=== PATIENT | male | born 1965 | race Caucasian/White ===

== ENCOUNTER 2020-11-06 10:14 | Outpatient (CLI) | payer OTHER ==
--- NOTE | 2020-11-06 10:38 | RAD ---
Frontal and lateral imaging of the thoracic spine: 11/06/2020 COMPARISON: None HISTORY: Upper back pain FINDINGS: There is multilevel mild thoracic spine disc space narrowing with minimal mid and lower tho racic spine anterior osteophyte from aeration. No anterolisthesis or retrolisthesis. No evidence for fracture. Thoracic pedicles appear intact on frontal imaging. IMPRESSION: Mild degenerative change. If there are radicular symptoms, MRI suggested.
--- NOTE | 2020-11-06 10:39 | RAD ---
Cervical spine 5 views HISTORY: Neck pain. FINDINGS: Vertebral body heights and alignment are maintained. Cervicothoracic junction is intact. Mild osteophytosis. No acute fracture, dislocation, or aggressive osseous erosions. On the oblique views, neural foramina are free of significant osseous encroachment. IMPRESSION : Very mild osseous degenerative changes. No acute abnormalities are demonstrated.
== END 2020-11-06 10:15 | disposition home or self-care (01) ==
LOC: MADRAD 10:14
PROVIDERS: ATTEND Family Medicine
DX: M54.2 Cervicalgia (principal); M54.6 Pain in thoracic spine; M47.812 Spondylosis without myelopathy or radiculopathy, cervical region; M47.814 Spondylosis without myelopathy or radiculopathy, thoracic region
CPT/HCPCS: 72050; 72070

== ENCOUNTER 2021-05-13 19:34 | Emergency (ER) | payer OTHER | END 2021-05-13 21:04 | disposition home or self-care (01) | LOC: MADERS 19:34 | DX: S02.40CA Maxillary fracture, right side, initial encounter for closed fracture (principal); I10 Essential (primary) hypertension; K21.9 Gastro-esophageal reflux disease without esophagitis; W19.XXXA Unspecified fall, initial encounter | CPT/HCPCS: 70486 ==